=== PATIENT | male | born 1990 | race African-American/Black ===

== ENCOUNTER 2016-10-23 15:40 | Outpatient (CLI) | payer MEDICARE ==
[2016-10-23 16:54] LABS: Eosinophils 2 % (0-10); Hemoglobin 17.5 g/dL (14.0-18.0); Lymphocytes 44 % (21-51); MDiff Complete? YES; Mean Corpuscular HGB CONC 33.7 g/dL (32.0-36.0); Mean Corpuscular Hemoglobin 31.1 pg (27.0-31.0); Mean Corpuscular Volume 92.3 fl (80.0-94.0); Monocytes 8 % (0-10); Neutrophil 46 % (42-75); Platelet Count 196 thou/uL (130-400); RBC Distribution Width 11.5 % (11.5-14.5); Red Blood Cell (RBC) Count 5.61 mill/uL (4.70-6.10); White Blood Cell (WBC) Count 5.2 thou/uL (4.8-10.8)
[2016-10-23 17:37] LABS: ALT (SGPT) 21 U/L (8-55); AST (SGOT) 20 U/L (5-34); Albumin 4.5 g/dL (3.5-5.0); Alkaline Phosphatase 107 U/L (40-150); Anion Gap 17 mmol/L (10-20); BUN (Urea Nitrogen) 12 mg/dL (8.9-20.6); Bilirubin, Total 0.6 mg/dL (0.2-1.2); Calc. Creatinine Clearance 0 mL/min (70-130); Calcium 9.9 mg/dL (7.8-10.44); Carbon Dioxide 24 mmol/L (22-29); Chloride 105 mmol/L (98-107); Estimated GFR-MDRD 89; Glucose 87 mg/dL (70-105); Potassium 4.1 mmol/L (3.5-5.1); Protein, Total 8.5 g/dL (6.0-8.3); Sodium 142 mmol/L (136-145)
== END 2016-10-23 15:41 | disposition home or self-care (01) ==
LOC: HPCALD 15:40
PROVIDERS: ATTEND Physician Assistant
DX: F32.89 Other specified depressive episodes (principal); I10 Essential (primary) hypertension
CPT/HCPCS: 36415; 80053; 84443; 85025

== ENCOUNTER 2017-02-08 11:19 | Emergency (ER) | payer MEDICARE | END 2017-02-08 11:41 | disposition home or self-care (01) | LOC: BURERS 11:19 | DX: M26.601 Right temporomandibular joint disorder, unspecified (principal); F17.210 Nicotine dependence, cigarettes, uncomplicated; I10 Essential (primary) hypertension | CPT/HCPCS: 99283 ==

== ENCOUNTER 2018-01-11 20:11 | Emergency (ER) | payer MEDICARE, OTHER ==
--- NOTE | 2018-01-11 20:54 | RAD ---
LEFT HIP TWO VIEWS: 01/11/18 HISTORY: Pain. COMPARISON: None. FINDINGS: There appears to be sclerosis involving the superolateral aspect of the left frontal head. The findin gs are nonspecific. There is no evidence of collapse of the femoral head. The joint space appears to be preserved. IMPRESSION: 1. Nonspecific sclerosis involving the superolateral aspect of the left femoral head. 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 Better interrogation with nonemergent MRI is recommen ded. 2. No evidence of collapse of the femoral head. CODE T POS: PPP
== END 2018-01-11 21:00 | disposition home or self-care (01) ==
LOC: BURERS 20:11
DX: M70.62 Trochanteric bursitis, left hip (principal); I10 Essential (primary) hypertension; F17.210 Nicotine dependence, cigarettes, uncomplicated; Z79.899 Other long term (current) drug therapy

== ENCOUNTER 2018-05-20 14:23 | Emergency (ER) | payer MEDICARE, OTHER | END 2018-05-20 15:01 | disposition home or self-care (01) | LOC: BURERS 14:23 | DX: L02.92 Furuncle, unspecified (principal); F17.210 Nicotine dependence, cigarettes, uncomplicated; I10 Essential (primary) hypertension; Z79.899 Other long term (current) drug therapy; Z86.73 Personal history of transient ischemic attack (TIA), and cerebral infarction without residual deficits | CPT/HCPCS: 10061 ==

== ENCOUNTER 2019-01-09 13:06 | Emergency (ER) | payer MEDICARE, OTHER | END 2019-01-09 13:36 | disposition home or self-care (01) | LOC: BURERS 13:06 | DX: L73.9 Follicular disorder, unspecified (principal); I10 Essential (primary) hypertension; F17.210 Nicotine dependence, cigarettes, uncomplicated; Z86.73 Personal history of transient ischemic attack (TIA), and cerebral infarction without residual deficits; Z79.899 Other long term (current) drug therapy | CPT/HCPCS: 99283 ==

== ENCOUNTER → 2019-05-11 | Emergency (ER) | payer MEDICARE, OTHER | LOC: BURERS 21:15 | DX: Z53.21 Procedure and treatment not carried out due to patient leaving prior to being seen by health care provider (principal) ==

== ENCOUNTER 2024-11-05 08:25 | Emergency (ER) | payer MEDICAID, MEDICARE ==
[2024-11-05] MEDS ORDERED: Dexamethasone 10 MG/ML VIAL ONE (08:55)
[2024-11-05] MEDS ORDERED: Bicillin LA 1.2 MILLION UNITS/2 ML SYRINGE ONE (08:57)
== END 2024-11-05 09:17 | disposition home or self-care (01) ==
LOC: BURERS 08:25
DX: J02.0 Streptococcal pharyngitis (principal); F17.210 Nicotine dependence, cigarettes, uncomplicated
CPT/HCPCS: 99282; J0561; J1100